=== PATIENT | male | born 1990 | race Caucasian/White ===

== ENCOUNTER 2018-01-23 23:31 | Emergency (ER) | payer OTHER ==
[2018-01-23 23:54] VITALS: TEMP 98.2
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
[2018-01-24 01:42] VITALS: BP 120/80; O2SAT 99
== END 2018-01-24 01:30 | disposition home or self-care (01) ==
LOC: ER 23:31
DX: S06.0X1A Concussion with loss of consciousness of 30 minutes or less, initial encounter (principal); S00.11XA Contusion of right eyelid and periocular area, initial encounter; S00.12XA Contusion of left eyelid and periocular area, initial encounter; M54.2 Cervicalgia; Z88.6 Allergy status to analgesic agent; Y04.0XXA Assault by unarmed brawl or fight, initial encounter